=== PATIENT | female | born 1980 | race Caucasian/White ===

== ENCOUNTER 2021-10-30 12:49 | Emergency (ER) | payer OTHER ==
[2021-10-30] MEDS ORDERED: GI Cocktail Oral Solution 30 ML PO ONE (12:53)
[2021-10-30] MEDS ORDERED: Sodium Chloride 0.9% 10 ML Syringe FLUSH PRN (12:57)
[2021-10-30 13:44] LABS: ANION GAP 10.3 meq/L (7-15)
[2021-10-30] MEDS ORDERED: Ketorolac 30 MG/ML SDV IVPUSH ONE (13:47)
== END 2021-10-30 15:00 | disposition home or self-care (01) ==
LOC: LL.ED 12:49
DX: R07.89 Other chest pain (principal); F41.9 Anxiety disorder, unspecified; Z88.0 Allergy status to penicillin; Z88.1 Allergy status to other antibiotic agents; Z91.048 Other nonmedicinal substance allergy status; Z79.899 Other long term (current) drug therapy
CPT/HCPCS: 36415; 71046; 80053; 81001; 82150; 83690; 83735; 84443; 84484; 85025; 85379; 93005; 93010; 96374; 99284; 99285; A9270; J1885